=== PATIENT | female | born 1965 | race Caucasian/White ===

== ENCOUNTER 2023-01-13 09:42 | Inpatient (IN) | payer SELFPAY ==
[2023-01-13 10:12] LABS: #Eosinphils 0.2 thou/uL (0.0-0.7); #Monocytes 0.5 thou/uL (0.11-0.59); %Basophils 0.4 % (0.0-1.0); %Eosinophils 4.1 % (0.0-10.0); %Lymphocytes 23.6 % (21.0-51.0); %Monocytes 9.4 % (0.0-10.0); %Neutrophils 62.1 % (42.0-75.0); Hemoglobin 13.6 g/dL (12.0-16.0); Mean Corpuscular HGB CONC 33.9 g/dL (32.0-36.0); Mean Corpuscular Hemoglobin 31.3 pg (27.0-31.0); Mean Corpuscular Volume 92.4 fl (78.0-98.0); Mean Platelet Volume 9.2 fL (7.4-10.4); Platelet Count 207 10x3/uL (130-400); RBC Distribution Width 12.4 % (11.5-14.5); Red Blood Cell (RBC) Count 4.34 mill/uL (4.20-5.40); White Blood Cell (WBC) Count 4.9 10x3/uL (4.8-10.8)
[2023-01-13] MEDS ORDERED: Acetaminophen 500 MG TAB ONE (10:55)
[2023-01-13] MEDS ORDERED: Nitroglycerin 0.4 MG TAB 1 EACH ONE (10:55)
[2023-01-13 11:03] LABS: Albumin 4.5 g/dL (3.5-5.0)
[2023-01-13 11:04] LABS: Chloride 102 mmol/L (98-107); Potassium 3.8 mmol/L (3.5-5.1)
[2023-01-13 11:05] LABS: Calcium 9.6 mg/dL (7.8-10.44); Sodium 133 mmol/L (136-145)
[2023-01-13 11:06] LABS: Globulin 3.1 g/dL (2.4-3.5); Glucose 80 mg/dL (70-105); Protein, Total 7.6 g/dL (6.0-8.3)
[2023-01-13 11:07] LABS: Anion Gap 14 mmol/L (10-20); Carbon Dioxide 21 mmol/L (22-29)
[2023-01-13 11:08] LABS: Bilirubin, Total 0.4 mg/dL (0.2-1.2)
[2023-01-13 11:09] LABS: Alkaline Phosphatase 104 U/L (40-110); Calc. Creatinine Clearance 0 mL/min (70-130); Estimated GFR 77
[2023-01-13 11:10] LABS: BUN (Urea Nitrogen) 15 mg/dL (9.8-20.1)
[2023-01-13 11:11] LABS: ALT (SGPT) 13 U/L (8-55); AST (SGOT) 23 U/L (5-34)
[2023-01-13 11:12] LABS: Lipase 79 U/L (8-78)
[2023-01-13] MEDS ORDERED: Aspirin 325 MG TAB ONE (11:26)
[2023-01-13] MEDS ORDERED: Acetaminophen 325 MG TAB PO PRN (13:00)
[2023-01-13 14:31] LABS: Troponin I Less than 0.010 ng/mL (< 0.028)
[2023-01-13 17:44] LABS: Troponin I Less than 0.010 ng/mL (< 0.028)
[2023-01-13 17:59] VITALS: BMI 24.3
[2023-01-13] MEDS ORDERED: Ondansetron PF 4 MG/2 ML Vial IVP PRN (18:30)
[2023-01-13] MEDS ORDERED: Ondansetron ODT 4 MG TAB SL PRN (18:30)
[2023-01-14 05:45] LABS: Cardiac Risk 3.5 (Less than 4.5)
[2023-01-14] MEDS: Levothyroxine Sodium 50 MCG TAB PO SCH (06:28)
[2023-01-14] MEDS ORDERED: Ondansetron ODT 4 MG TAB PO SCH (08:15)
[2023-01-14] MEDS ORDERED: Aspirin Chewable 81 MG TAB PO SCH (09:00)
[2023-01-14] MEDS ORDERED: ADENOSINE 60 MG/20 ML SDV ONE (09:00)
[2023-01-14] MEDS ORDERED: Lidocaine 2% Viscous Solution 10 ML, Aluminum & Magnesium Hydroxide 30 ML SSW SCH (11:15)
[2023-01-14] MEDS: Lisinopril/Hydrochlorothiazide 20 mg/12.5 mg Tablet PO SCH (13:21)
[2023-01-14] MEDS ORDERED: Communication Order-Pharmacy FS SCH (18:00)
[2023-01-14] MEDS ORDERED: Ondansetron HCl/PF 4 MG in Sodium Chloride 0.9% 50 ML IVPB PRN (18:16)
[2023-01-14] MEDS: Ondansetron PF 4 MG/2 ML Vial IVP PRN ×2 (18:39→22:02)
[2023-01-14] MEDS ORDERED: Rosuvastatin 10 MG TAB PO SCH (21:00)
[2023-01-14] MEDS ORDERED: Promethazine HCl 12.5 MG in Sodium Chloride 0.9% 50 ML IVPB PRN (23:30)
[2023-01-15 00:27] LABS: Troponin I Less than 0.010 ng/mL (< 0.028)
[2023-01-15] MEDS ORDERED: Heparin 10,000 UNITS/ 10 ML VIAL SLOW IVP SCH ×2 (02:00→02:15)
[2023-01-15] MEDS ORDERED: Nitroglycerin 2% Ointment 1 INCH/1 GM Packet TOP SCH (02:00)
[2023-01-15] MEDS ORDERED: Heparin 25,000 units/D5W 500 ML IVPB SCH (02:00)
[2023-01-15] MEDS ORDERED: Heparin 25,000 units/D5W 500 ML IV SCH (02:15)
[2023-01-15 02:36] LABS: Hemoglobin 12.7 g/dL (12.0-16.0); Platelet Count 200 10x3/uL (130-400)
[2023-01-15] MEDS ORDERED: Sodium Chloride 0.9% 1,000 ML IV SCH ×2 (06:00→07:46)
[2023-01-15] MEDS: Levothyroxine Sodium 50 MCG TAB PO SCH (06:00)
[2023-01-15] MEDS ORDERED: fentaNYL 50 mcg/mL 1 mL Vial ONE (06:22)
[2023-01-15] MEDS ORDERED: Midazolam HCl 2 mg/2 ml Vial ONE (06:22)
[2023-01-15] MEDS ORDERED: Nitroglycerin 50 MG/250 ML BOT 0 ML ONE (06:23)
[2023-01-15] MEDS ORDERED: Lidocaine 1% (PF) 30 ML VIAL ONE (06:23)
[2023-01-15] MEDS ORDERED: Heparin 10,000 UNITS/ 10 ML VIAL ONE (06:23)
[2023-01-15] MEDS ORDERED: Protamine Sulfate 50 MG/5 ML VIAL ONE (07:33)
[2023-01-15] MEDS ORDERED: Acetaminophen/Codeine 30-300mg Tablet PO PRN ×2 (07:46)
[2023-01-15] MEDS ORDERED: Nitroglycerin 0.4 MG TAB (25 Tab Bottle) SL PRN (07:46)
[2023-01-15] MEDS ORDERED: Sodium Chloride 0.9% 200 ML IV PRN (07:46)
[2023-01-15] MEDS: Lisinopril/Hydrochlorothiazide 20 mg/12.5 mg Tablet PO SCH (09:36)
[2023-01-15] MEDS: Colchicine 0.6 MG TAB PO SCH ×2 (09:48→18:47)
[2023-01-15 10:05] LABS: Anion Gap 13 mmol/L (10-20); BUN (Urea Nitrogen) 15 mg/dL (9.8-20.1); Calc. Creatinine Clearance 82 mL/min (70-130); Calcium 8.7 mg/dL (7.8-10.44); Carbon Dioxide 22 mmol/L (22-29); Chloride 103 mmol/L (98-107); Estimated GFR 85; Glucose 59 mg/dL (70-105); Magnesium 1.8 mg/dL (1.6-2.6); Potassium 3.8 mmol/L (3.5-5.1); Sodium 134 mmol/L (136-145)
[2023-01-15] MEDS ORDERED: Iopamidol 370 76% 100 ML VIAL ONE (15:15)
[2023-01-15 16:53] VITALS: BP 97/56; TEMP 98.6
== END 2023-01-15 18:58 | disposition home or self-care (01) | DRG 287 ==
LOC: ERS 09:42 → ERHOLD 12:15 → 2SW 17:50 → OBSVTOIN 01-14 15:33
PROVIDERS: ADMIT Family Medicine; ATTEND Family Medicine
PROC: 4A023N7 Measurement of Cardiac Sampling and Pressure, Left Heart, Percutaneous Approach (ICD-10-PCS; principal; 2023-01-15)
PROC: B2111ZZ Fluoroscopy of Multiple Coronary Arteries using Low Osmolar Contrast (ICD-10-PCS; 2023-01-15)
PROC: B2151ZZ Fluoroscopy of Left Heart using Low Osmolar Contrast (ICD-10-PCS; 2023-01-15)
DX: R07.89 Other chest pain (principal); I31.9 Disease of pericardium, unspecified; E87.1 Hypo-osmolality and hyponatremia; I08.1 Rheumatic disorders of both mitral and tricuspid valves; I10 Essential (primary) hypertension; E03.9 Hypothyroidism, unspecified; Z87.891 Personal history of nicotine dependence; K21.9 Gastro-esophageal reflux disease without esophagitis; Z79.890 Hormone replacement therapy; Z79.899 Other long term (current) drug therapy; Z87.442 Personal history of urinary calculi; Z90.89 Acquired absence of other organs
CPT/HCPCS: 36415; 71045; 78452; 80048; 80053; 80061; 83036; 83690; 83735; 83880; 84443; 84484; 85014; 85018; 85025; 85049; 85347; 85379; 85730; 93005; 93010; 93017; 93306; 93458; 96360; 99152; 99153; A9500; C1769; C1880; G0378; J0153; J1644; J2001; J2250; J2405; J2720; J3010; J7050; Q0162; Q9967